=== PATIENT | female | born 1955 | race Caucasian/White ===

== ENCOUNTER 2018-07-19 05:38 | Emergency (ER) | payer MEDICAID | END 2018-07-19 07:17 | disposition home or self-care (01) | LOC: FTE 05:38 | DX: R05 Cough (principal); I10 Essential (primary) hypertension; Z86.73 Personal history of transient ischemic attack (TIA), and cerebral infarction without residual deficits; Z79.01 Long term (current) use of anticoagulants | CPT/HCPCS: 71045; 93005; 99284-25 ==